=== PATIENT | male | born 1980 ===

== ENCOUNTER 2021-09-08 17:02 | Emergency (ER) | payer BC ==
[2021-09-08] MEDS ORDERED: Iopamidol 755 Mg/ML 100 ML Bottle IVPUSH ONE (19:37)
[2021-09-08] MEDS ORDERED: Sodium Chloride 0.9% 10 ML Syringe FLUSH ONE (19:37)
[2021-09-08] MEDS ORDERED: Sodium Chloride 0.9% 100 ML IV SCH (19:45)
[2021-09-08] MEDS ORDERED: Aspirin 81 MG Tab.Chew PO ONE (21:22)
[2021-09-08] MEDS ORDERED: Clopidogrel 75 MG Tab PO ONE (21:22)
== END 2021-09-08 21:53 | disposition home or self-care (01) ==
LOC: JD.ED 17:02
DX: R27.0 Ataxia, unspecified (principal); R47.81 Slurred speech; Z20.822 Contact with and (suspected) exposure to COVID-19
CPT/HCPCS: 36415; 70450; 70496; 70498; 80053; 80306; 80307; 85025; 85610; 87635; 93005; 99285; A9270; Q9967; 93010; U0002